=== PATIENT | male | born 1995 | race Caucasian/White ===

== ENCOUNTER 2017-10-15 17:16 | Emergency (ER) | payer OTHER ==
[~2017-10-15] VITALS: Ht 185.4 cm; Wt 134.7 kg
--- NOTE | ~2017-10-15 | EKG ---
[place] [address] [facility] [place] [address] ELECTROCARDIOGRAM REPORT Name: JEFFRY GUAJARDO Room #: [facility] Eaton#: [id number] Admission: 10/15/17 Attend Phys: Discharge: 10/15/17 Date of : [birth year] Report #: [id number] THIS REPORT FOR: //name// [facility] ED Test Date: 2017-10-15 Test Time: 17:22:58 Pat Name: JEFFRY GUAJARDO Department: Room: Gender: M Cpr Instructor: MASHA : 1995 Requested By: Rhonda Lala Order Number: [id number] MD: Pb Ann Measurements Intervals Erin Rate: 112 P: 36 LA: 151 QRS: 50 QRSD: 102 T: 25 QT: 312 QTc: 426 Interpretive Statements Sinus tachycardia Otherwise no significant abnormality No previous ECG available for comparison Electronically Signed On 10-16-2017 8:13:30 SENIOR RESEARCH CONSULTANT by Pb Ann [email or web address] <ELECTRONICALLY SIGNED> By: Pb Ann MD, [facility] 10/16/17 0813 1722 1722 Pb Ann MD, FACC /EPI
[2017-10-15 17:40] LABS: ABSOLUTE NEUTROPHILS 5.2 thou/uL (1.4-8.2); BASOPHILS 0.4 % (0.0-2.0); EOSINOPHILS 2.3 % (0.0-3.0); HEMATOCRIT 44.9 % (42.0-52.0); HEMOGLOBIN 15.7 gm/dL (14.0-18.0); LYMPHOCYTES 33.3 % (24.0-44.0); MCH 29.4 pg (26.0-34.0); MCV 84.1 fL (80.0-100.0); PLATELET COUNT 260 thou/uL (150-400); RBC 5.33 mil/uL (4.50-6.00); RDW 12.8 % (10.5-14.5)
[2017-10-15 17:47] LABS: ANION GAP 10 mmol/L (7-16); BUN 14 mg/dL (7-18); CALCIUM 9.6 mg/dL (8.5-10.1); CHLORIDE 103 mmol/L (98-107); CO2 28 mmol/L (21-32); GLUCOSE 105 mg/dL (74-106); SODIUM 141 mmol/L (136-145)
[2017-10-15 17:55] LABS: ALBUMIN 4.2 g/dL (3.4-5.0); SGOT 56 U/L (15-37); SGPT 118 U/L (30-65); TOTAL BILIRUBIN 0.3 mg/dL (<0.1-1.0); TOTAL PROTEIN 8.1 g/dL (6.4-8.2); TROPONIN-I < 0.04 ng/mL (<0.06)
[2017-10-15] MEDS ORDERED: MOBIC7.5 MG PO (18:44)
== END 2017-10-15 19:08 | disposition home or self-care (01) ==
LOC: ER 17:16
PROVIDERS: Physician Assistant
DX: R07.89 Other chest pain (principal); R09.1 Pleurisy